=== PATIENT | male | born 1980 | race Caucasian/White ===

== ENCOUNTER 2020-02-04 17:13 | Emergency (ER) | payer OTHER ==
[~2020-02-04] VITALS: Ht 152.4 cm; Wt 99.0 kg
[2020-02-04 17:24] VITALS: BP_DIAS 86
[2020-02-04] MEDS ORDERED: KETOROLAC 60 MG/2 ML VIAL. IM ONE (17:30)
[2020-02-04] MEDS ORDERED: ONDANSETRON ODT 4 MG TAB.RAPDIS PO ONE (17:30)
[2020-02-04] MEDS ORDERED: TAMSULOSIN 0.4 MG CAP.ER.24H. PO ONE (17:30)
--- NOTE | 2020-02-04 17:33 | PHYS DOC ---
Past History Past Medical History: Kidney Stones (HILARIO JOHNSON APRN) Past Surgical History: Tonsillectomy (HILARIO JOHNSON APRN) Alcohol Use: Occasionally (HILARIO JOHNSON APRN) Adult General Chief Complaint Chief Complaint: BACK PAIN - NO INJURY HPI HPI Patient is a 39-year-old male patient with history of kidney stones presenting to the ED today complaining of 8 out of 10 sharp intermittent right flank pain that began this morning. Patient denies any nausea vomiting. Denies anything specifically exacerbating or relieving his symptoms. Denies any hematuria, frequency, urgency or dysuria. Patient states this pain feels similar to the last time he had a kidney stone. (HILARIO JOHNSON APRN) Review of Systems Review of Systems Constitutional: Denies fever or chills [] Eyes: Denies change in visual acuity, redness, or eye pain [] HENT: Denies nasal congestion or sore throat [] Respiratory: Denies cough or shortness of breath [] Cardiovascular: No additional information not addressed in HPI [] GI: Denies abdominal pain, nausea, vomiting, bloody stools or diarrhea [] : Reports right flank pain. Denies dysuria or hematuria [] Musculoskeletal: Denies back pain or joint pain [] Integument: Denies rash or skin lesions [] Neurologic: Denies headache, focal weakness or sensory changes [] All other systems were reviewed and found to be within normal limits, except as documented in this note. (HILARIO JOHNSON APRN) Current Medications Current Medications Current Medications Medications (Trade) Dose Ordered Sig/Scar Start Time Stop Time Status Last Admin Dose Admin Ketorolac Tromethamine (Toradol Im) 60 mg 1X ONCE 02/04/20 17:30 02/04/20 17:31 UNV Ondansetron HCl (Zofran Odt) 4 mg 1X ONCE 02/04/20 17:30 02/04/20 17:31 UNV Tamsulosin HCl (Flomax) 0.4 mg 1X ONCE 02/04/20 17:30 02/04/20 17:31 UNV (HILARIO JOHNSON APRN) Allergies Allergies Allergies Coded Allergies Type Severity Reaction Last Updated Verified No Known Drug Allergies 02/04/20 No (HILARIO JOHNSON APRN) Physical Exam Physical Exam Constitutional: Well developed, well nourished, no acute distress, non-toxic appearance. [] HENT: Normocephalic, atraumatic, bilateral external ears normal, oropharynx moist, no oral exudates, nose normal. [] Eyes: PERRLA, EOMI, conjunctiva normal, no discharge. [] Neck: Normal range of motion, no tenderness, supple, no stridor. [] Cardiovascular:Heart rate regular rhythm, no murmur [] Lungs & Thorax: Bilateral breath sounds clear to auscultation [] Abdomen: Bowel sounds normal, soft, no tenderness, no masses, no pulsatile masses. [] Skin: Warm, dry, no erythema, no rash. [] Back: No tenderness, no CVA tenderness. [] Extremities: No tenderness, no cyanosis, no clubbing, ROM intact, no edema. [] Neurologic: Alert and oriented X 3, normal motor function, normal sensory function, no focal deficits noted. [] Psychologic: Affect normal, judgement normal, mood normal. [] (HILARIO JOHNSON APRN) Current Patient Data Vital Signs Vital Signs Date Time Temp Pulse Resp B/P (MAP) Pulse Ox O2 Delivery O2 Flow Rate FiO2 02/04/20 17:24 98.0 75 18 162/86 (111) 97 (HILARIO JOHNSON APRN) EKG EKG [] (HILARIO JOHNSON APRN) Radiology/Procedures Radiology/Procedures []PROCEDURE: CT ABDOMEN PELVIS WO CONTRAST EXAM: CT Abdomen and Pelvis without IV contrast CLINICAL HISTORY: right flank pain hx of kidney stones COMPARISON: none TECHNIQUE: Helical CT of the abdomen and pelvis was performed without the administration of IV contrast. Axial, coronal and sagittal reformatted images were generated. ---PQRS compliance statement - One or more of the following individualized dose reduction techniques were utilized for this study: 1. Automated exposure control 2. Adjustment of the mA and/or kV according to patient size 3. Use of iterative reconstruction technique--- FINDINGS: Lack of intravenous contrast limits evaluation of solid organs, vasculature, and lymph nodes. Lower chest: Lung bases are clear. Abdomen and pelvis: No focal liver lesion. Gallbladder is normal. No biliary duct dilatation. Pancreas, spleen, adrenal glands are normal. Nonobstructing punctate calculi within the left kidney. No left hydronephrosis or hydroureter. There is moderate right hydronephrosis with 4 mm calculus at the right ureterovesicular junction. Infiltration about the right kidney and right ureter possibly reactive or sequelae of infection. Prostate measures 4 cm in transverse dimension. Bladder is decompressed otherwise unremarkable. No abdominal or pelvic lymphadenopathy. Aorta is grossly normal in caliber. Appendix is normal. Moderate to large volume colonic stool content is seen. No abdominal or pelvic ascites. Small fat-containing periumbilical hernia is seen. No aggressive osseous lesion is seen. Degenerative changes of spine are seen. IMPRESSION: 1. 4 mm calculus at the right ureterovesicular junction results in moderate right hydronephrosis and hydroureter. 2. Nonobstructing punctate left renal calculi. Electronically signed by: Miguel Carroll MD (02/04/2020 6:40 PM) [facility] DICTATED AND SIGNED BY: MIGUEL CARROLL MD DATE: 02/04/20 183 CC: EMERGENCY,DEPARTMENT; HILARIO JOHNSON APRN; ADAMS CARLIN MD ~MTH0 0 (HILARIO JOHNSON APRN) Heart Score Risk Factors: Risk Factors: DM, Current or recent (<one month) smoker, HTN, HLP, family history of CAD, obesity. Risk Scores: Risk Factors: DM, Current or recent (<one month) smoker, HTN, HLP, family history of CAD, obesity. (HILARIO JOHNSON APRN) Course & Med Decision Making Course & Med Decision Making Pertinent Labs and Imaging studies reviewed. (See chart for details) This is a 39-year-old male patient presented to the ED today complaining of right flank pain, symptoms began today. Urine analysis negative for infection, noted for small amount of blood. CT of the abdomen and pelvic without contrast was noted for 4 mm calculus at the right ureterovesicular junction results in moderate right hydronephrosis and hydroureter. Nonobstructing punctate left renal calculi. Patient was discharged on Flomax, hydrocodone and Zofran. Instructed to follow- up with the urologist of his own choice. Provided return precautions. Discharged in stable condition. (HILARIO JOHNSON APRN) Dragon Disclaimer Dragon Disclaimer This electronic medical record was generated, in whole or in part, using a voice recognition dictation system. (HILARIO JOHNSON APRN) Departure Departure: Impression: Primary Impression: Kidney stone Additional Impression: Hydronephrosis Disposition: 01 DC HOME SELF CARE/HOMELESS Condition: STABLE Referrals: ADAMS CARLIN MD (PCP) Follow-up with your primary care doctor as well as a neurologist on your own choice next week Patient Instructions: Kidney Stones, [id number] Additional Instructions: You have a 4 mm kidney stone at the ureterovesicular junction, you also have a tiny nonobstructing left kidney stone. Please take the prescribed medicines as ordered. Please contact any urologist of your choice, [facility] has one or [facility] and set up a follow up appointment for next week. Come back to the ED at any point symptoms worsen. Scripts Hydrocodone Bit/Acetaminophen (NORCO 5-325 TABLET) 1 Each Tablet 1-2 TAB PO Q4-6HRS, #40 TAB Prov: HILARIO JOHNSON APRN 02/04/20 Ondansetron Hcl (ZOFRAN) 4 Mg Tablet 1 TAB PO Q6HRS, #20 TAB Prov: HILARIO JOHNSON APRN 02/04/20 Tamsulosin Hcl (FLOMAX) 0.4 Mg Cap.er.24h 1 CAP PO DAILY, #7 CAP 7 Refills Prov: HILARIO JOHNSON APRN 02/04/20 Attending Signature Attending Signature I have participated in the care of this patient and I have reviewed and agree with all pertinent clinical information above including history, exam, and recommendations. (EDWARD QUESADA MD) Dragon Disclaimer This chart was dictated in whole or in part using Voice Recognition software in a busy, high-work load, and often noisy Emergency Department environment. It may contain unintended and wholly unrecognized errors or omissions. (EDWARD QUESADA MD) Problem Qualifiers Additional Impression: Hydronephrosis Hydronephrosis type: unspecified Qualified Codes: N13.30 - Unspecified hydronephrosis HILARIO JOHNSON APRN Feb 04, 2020 17:33 EDWARD QUESADA MD Feb 05, 2020 19:36
[2020-02-04 18:28] LABS: BACTERIA,URINE 0 /HPF (0-FEW); BILIRUBIN,URINE NEG (NEG); CLARITY,URINE CLEAR; COLOR,URINE YELLOW; GLUCOSE,URINE NEG (NEG); NITRITE,URINE NEG (NEG); SQUAMOUS EPITHELIAL CELL,UR OCC /LPF; UROBILINOGEN,URINE 0.2 mg/dL (0.2 mg/dL); WBC,URINE 0 /HPF (0-4)
--- NOTE | 2020-02-04 18:42 | RAD ---
EXAM: CT Abdomen and Pelvis without IV contrast CLINICAL HISTORY: right flank pain hx of kidney stones COMPARISON: none TECHNIQUE: Helical CT of the abdomen and pelvis was performed without the administration of IV contra st. Axial, coronal and sagittal reformatted images were generated. ---PQRS compliance statement - One or more of the following individualized dose reduction techniques were utilized for this study: 1. Automated exposure control 2. Adjustment of the mA and/or kV according to patient size 3. Use of iterative reconstruction technique--- FINDINGS: Lack of intravenous contrast limits evaluation of solid organs, vasculature, and lymph nodes. Lower chest: Lung bases are clear. Abdomen and pelvis: No focal liver lesion. Gallbladder is normal. No biliary duct dilatation. Pancreas, spleen, adrenal g lands are normal. Nonobstructing punctate calculi within the left kidney. No left hydronephrosis or hydroureter. There is moderate right hydronephrosis with 4 mm calculus at the right ureterovesicular junction. Infiltrat ion about the right kidney and right ureter possibly reactive or sequelae of infection. Prostate shaila ures 4 cm in transverse dimension. Bladder is decompressed otherwise unremarkable. No abdominal or pelvic lymphadenopathy. Aorta is grossly normal in caliber. Appendix is normal. Moderate to large volume colonic stool content is seen. No abdominal or pelvic as cites. Small fat-containing periumbilical hernia is seen. No aggressive osseous lesion is seen. Degenerative changes of spine are seen. IMPRESSION: 1. 4 mm calculus at the right ureterovesicular junction results in moderate right hydronephrosis and hydroureter. 2. Nonobstructing punctate left renal calculi. Electronically signed by: Miguel Moy MD (02/04/2020 6:40 PM) [facility]
[2020-02-04] MEDS ORDERED: TAMS0.4C97 PO (18:51)
[2020-02-04] MEDS ORDERED: ONDA4TAB7 PO (18:51)
[2020-02-04] MEDS ORDERED: HYDR-3165 PO (18:51)
[2020-02-04 18:55] VITALS: BP_SYST 136
== END 2020-02-04 19:00 | disposition home or self-care (01) ==
LOC: ER 17:13
DX: N13.2 Hydronephrosis with renal and ureteral calculous obstruction (principal); Z87.442 Personal history of urinary calculi
CPT/HCPCS: 74176; 81001; 96372; 99284; J1885; Q0162